=== PATIENT | male | born 1970 | race Hispanic/Latino ===

== ENCOUNTER 2016-08-03 14:08 | Emergency (ER) | payer OTHER ==
[2016-08-03 15:02] VITALS: BP 126/87
--- NOTE | 2016-08-03 15:40 | XRay Report ---
FINAL REPORT EXAM: XR ANKLE 3 RT HISTORY: injury/ PAIN IN MEDIAL SIDE RT ANKLE TECHNIQUE: 3 views of the right ankle. PRIORS: None FINDINGS: Joint spaces are maintained. Talar dome is intact. Ankle mortise is intact. No acute fracture or dislocation. IMPRESSION: 1. No acute fracture.
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
[2016-08-03] MEDS ORDERED: MOTRIN PO ONE (16:59)
== END 2016-08-03 17:37 | disposition home or self-care (01) ==
LOC: ED 14:08
DX: S90.01XA Contusion of right ankle, initial encounter (principal); V20.5XXA Motorcycle passenger injured in collision with pedestrian or animal in traffic accident, initial encounter; R56.9 Unspecified convulsions; F17.200 Nicotine dependence, unspecified, uncomplicated; V09.9XXA Pedestrian injured in unspecified transport accident, initial encounter; Y93.9 Activity, unspecified; Y99.9 Unspecified external cause status; Y92.410 Unspecified street and highway as the place of occurrence of the external cause
CPT/HCPCS: 99283